=== PATIENT | female | born 1980 | race Caucasian/White ===

== ENCOUNTER → 2019-03-26 | Outpatient (CLI) | payer OTHER | END | disposition home or self-care (01) | LOC: PRENATAL 14:02 | DX: O26.843 Uterine size-date discrepancy, third trimester (principal); O99.89 Other specified diseases and conditions complicating pregnancy, childbirth and the puerperium; O35.0XX1 Maternal care for (suspected) central nervous system malformation in fetus, fetus 1; O36.8191 Decreased fetal movements, unspecified trimester, fetus 1; O99.513 Diseases of the respiratory system complicating pregnancy, third trimester; O34.13 Maternal care for benign tumor of corpus uteri, third trimester ==

== ENCOUNTER 2019-04-11 14:30 | Inpatient (IN) | payer OTHER ==
[~2019-04-11] VITALS: Ht 165.1 cm; Wt 78.9 kg
[2019-04-18] MEDS ORDERED: PRENATAL CAPLE1 EAC1 PO (08:32)
== END 2019-04-20 16:21 | disposition home or self-care (01) | DRG 807 ==
LOC: LDR 04-16 14:30 → OB/GYN 04-16 14:30 → LDR 04-18 06:56 → OB/GYN 04-19 07:54
PROVIDERS: ADMIT Obstetrics & Gynecology
PROC: 3E033VJ Introduction of Other Hormone into Peripheral Vein, Percutaneous Approach (ICD-10-PCS; 2019-04-18)
PROC: 4A1HXCZ Monitoring of Products of Conception, Cardiac Rate, External Approach (ICD-10-PCS; 2019-04-18)
PROC: 10E0XZZ Delivery of Products of Conception, External Approach (ICD-10-PCS; principal; 2019-04-19)
PROC: 0KQM0ZZ Repair Perineum Muscle, Open Approach (ICD-10-PCS; 2019-04-19)
PROC: 10907ZC Drainage of Amniotic Fluid, Therapeutic from Products of Conception, Via Natural or Artificial Opening (ICD-10-PCS; 2019-04-19)
DX: O70.1 Second degree perineal laceration during delivery (principal); Z37.0 Single live birth; Z3A.40 40 weeks gestation of pregnancy

== ENCOUNTER 2019-10-01 10:34 | Outpatient (CLI) | payer OTHER ==
[~2019-10-01 10:34] MED LIST: PRENATAL CAPLE1 EAC1 PO
== END 2019-10-01 10:56 | disposition home or self-care (01) ==
LOC: SONOGRAMA 10:34
PROVIDERS: ATTEND Specialist
DX: R10.2 Pelvic and perineal pain (principal)

== ENCOUNTER → 2019-12-26 | Outpatient (CLI) | payer OTHER | END | disposition home or self-care (01) | LOC: PRENATAL 10:00 | PROVIDERS: ATTEND Obstetrics & Gynecology Maternal & Fetal Medicine | DX: O34.11 Maternal care for benign tumor of corpus uteri, first trimester (principal); O36.80X1 Pregnancy with inconclusive fetal viability, fetus 1; O09.521 Supervision of elderly multigravida, first trimester; Z36.89 Encounter for other specified antenatal screening; Z3A.11 11 weeks gestation of pregnancy ==

== ENCOUNTER → 2020-05-22 | Outpatient (CLI) | payer OTHER | END | disposition home or self-care (01) | LOC: PRENATAL 05-08 14:00 | PROVIDERS: ATTEND Obstetrics & Gynecology Maternal & Fetal Medicine | DX: O26.843 Uterine size-date discrepancy, third trimester (principal); O09.523 Supervision of elderly multigravida, third trimester; Z36.89 Encounter for other specified antenatal screening; Z3A.32 32 weeks gestation of pregnancy ==

== ENCOUNTER 2022-07-12 22:36 | Emergency (ER) | payer OTHER ==
[~2022-07-12] VITALS: Ht 165.1 cm
== END 2022-07-13 05:51 | disposition home or self-care (01) ==
LOC: ER 22:36
DX: R30.0 Dysuria (principal); N39.0 Urinary tract infection, site not specified; R10.9 Unspecified abdominal pain; M54.89 Other dorsalgia; Z91.048 Other nonmedicinal substance allergy status